=== PATIENT | female | born 1985 | race Caucasian/White ===

== ENCOUNTER 2022-12-18 15:55 | Outpatient (CLI) | payer OTHER, SELFPAY ==
[2022-12-18 18:52] LABS: Chlamydia DNA Amplified* NOT DETECTED (No Detected); GC DNA Amplified* NOT DETECTED (No Detected)
== END 2022-12-18 15:56 | disposition home or self-care (01) ==
PROVIDERS: PCP Family Medicine; Visit Provider Registered Nurse
DX: N89.8 Other specified noninflammatory disorders of vagina (principal); Z11.3 Encounter for screening for infections with a predominantly sexual mode of transmission
CPT/HCPCS: 87491; 87591

== ENCOUNTER 2025-01-06 09:58 | Outpatient (CLI) | payer OTHER, SELFPAY | END 2025-01-06 09:59 | disposition home or self-care (01) | LOC: NFLDREF 01-08 03:03 | PROVIDERS: PCP Family Medicine; Referring Provider Family Medicine; Visit Provider Obstetrics & Gynecology | DX: N92.0 Excessive and frequent menstruation with regular cycle (principal); D64.9 Anemia, unspecified | CPT/HCPCS: 83540; 83550; 84443 ==

== ENCOUNTER 2025-01-10 11:03 | Outpatient (CLI) | payer OTHER, SELFPAY ==
--- NOTE | 2025-01-10 11:00 | CRLHL7_ITS ---
For Patients: As a result of the Century Cures Act, medical imaging exams and procedure reports are released immediately into your electronic medical record. You may view this report before your referring provider. If you have questions, please contact your health care provider. INDICATION: menorrhagia COMPARISON: 12/13/2021 TECHNIQUE: 2D murry scale and color Doppler images were acquired of the pelvis using a transabdominal and transvaginal approach. FINDINGS: Multiple cervical nabothian cysts are present. Intramural fibroid is present which measures 18 x 13 x 16 millimeters. Uterus measures 8.9 cm in length by 4.5 cm in AP diameter by 6.2 cm in transverse dimension. The myometrium has a normal uniform echotexture. The endometrial lining measures 15.8 mm in composite thickness. Echogenic nodular area associated with the endometrium measures 14 x 8 x 8 millimeters. The right ovary measures 3.2 x 1.8 x 3.1 cm in size and the left ovary measures 5.1 x 1.8 x 2.3 cm. The ovaries demonstrate normal arterial and venous blood flow on color Doppler analysis. There are no suspicious fluid collections within the cul-de-sac. IMPRESSION: Thickened endometrium measuring 15.8 millimeters with possible 14 millimeter endometrial polyp. Intramural uterine fibroid posteriorly measures 1.8 cm. Dictated by Rich Curtis MD @ 01/10/2025 6:55:15 PM (Electronically Signed)
== END 2025-01-10 11:04 | disposition home or self-care (01) ==
LOC: US 11:04
PROVIDERS: PCP Family Medicine; Visit Provider Obstetrics & Gynecology
DX: N92.0 Excessive and frequent menstruation with regular cycle (principal); R93.89 Abnormal findings on diagnostic imaging of other specified body structures; D25.1 Intramural leiomyoma of uterus
CPT/HCPCS: 76830; 76856

== ENCOUNTER 2025-01-14 06:09 | Day surgery (SDC) | payer OTHER, SELFPAY ==
[2025-01-14] VITALS (55 sets, daily range): BP systolic 79–123; BP diastolic 53–85; PULSE 68–111; RESP 11–17; TEMP 36.3–37.4; O2SAT 93–99; BMI 26.1
--- OUTSIDE RECORDS SUMMARY | 2025-01-14 06:14 | XMS_ITS | Clinical Summary ---
Author Organization [facility] Address [address] [place] [id number] Care Team Providers Care Emt Paramedic Name Role Phone Colton Kothari MD Primary Care Provider [phone] Allergies No known active allergies Medications cetirizine (ZYRTEC) 10 mg tablet Take 1 Tablet (10 mg) by mouth once daily. 0 1 Active LORazepam (ATIVAN) 0.5 mg tabIndications:A nxiety TAKE ONE TABLET BY MOUTH EVERY 6 HOURS IF NEEDED FOR ANXIETY 20 Tablet 2 Active multivitamin (MVI) tablet Take 1 Tablet by mouth once daily. Active fluticasone (50 mcg per actuation) nasal solution (FLONASE)Indicat ions:Allergy, sequela Inhale 2 Sprays to both nostrils once daily. 16 g 11 4 Active sertraline (ZOLOFT) 100 mg tabletIndication s:Anxiety Take 1 Tablet (100 mg) by mouth once daily. 90 Tablet 3 4 Active rizatriptan (MAXALT) 10 mg tabletIndication s:Migraine syndrome 10 mg at onset of Migraine, repeat in 2 hours as needed. Give at minimum 2hrs apart. Max Dose: 30mg per 24hrs. 6 Tablet 3 4 Active nitrofurantoin macrocrystals/mo nohydrate (Macrobid) 100 mg capsuleIndicatio ns:History of recurrent UTIs 1 tablet right after relations. 10 Capsule 4 Active buPROPion (Wellbutrin XL) 150 mg Extended-Release tabletIndication s:Mild episode of recurrent major depressive disorder Take 1 Tablet (150 mg) by mouth once daily. 90 Tablet 3 4 Active semaglutide, weight loss, (WEGOVY) 0.5 mg/0.5 mL subcutaneous pen Inject 0.5 mg subcutaneous once weekly. Active cyclobenzaprine (FLEXERIL) 5 mg tabletIndication s:Neck muscle spasm Take 1-2 Tablets (5-10 mg) by mouth 2 times daily if needed for Muscle Spasm. 45 Tablet 1 4 Active Active Problems Problem Noted Date Diagnosed Date Irritable bowel syndrome wit h both constipation and diarrhea 08/08/2023 Controlled substance agreement signed 07/14/2021 Overview (07/14/2021): Stimulant treatment of ADD. Controlled substance agreement discussed and signed 07/11/21. 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 Quinolone and bactrim resistant ecoli. Anxiety 05/24/2013 Attention deficit disorder without mention of hy peractivity 03/18/2013 Overview (06/06/2023): Adderall - she crashes when she goes off it. Ritalin - heart palpitations Strattera - cold hands and feet. Migraine, unspecified, witho ut mention of intractable migraine without mention of status migrainosus 12/29/2009 Major depressive disorder, recurrent episode, un specified 09/21/2009 Mild dysplasia of cervix 01/22/2008 Resolved Problems Problem Noted Date Diagnosed Date Resolved Date Cervical high risk HPV (natalia n papillomavirus) test positive 08/24/2015 09/09/2018 Overview (03/25/2017): HPV #16/18 negative Cervical high risk HPV (natalia n papillomavirus) test positive 02/22/2015 09/09/2018 LSIL (low grade squamous int raepithelial lesion) on Pap smear 02/26/2012 09/09/2018 Esophageal reflux 04/06/2008 12/29/2009 Supervision of normal first 11/03/2007 12/29/2009 Urinary tract infection, site not specified 11/03/2007 12/29/2009 Encounters Date Type Department Care Team Description 01/10/2025 Orders Only [facility] Scanner 1 scan: (1-Ord) [facility] and TV, 01/10/2025 from Last 3 Months Immunizations Name Administration Dates Next Due COVID-19 vaccine (Moderna 100mcg/0.5mL) PF, MDV 03/08/2021,02/08/2021 HPV 9 (Gardasil 9) 03/05/2024,06/06/2023 Hepatitis B (Adult) 07/24/2012 Hepatitis B (Peds) 07/03/1998,07/21/1996 Influenza A (H1N1), Inactivated 10/02/2009 Influenza Virus, Unspecified 09/07/2019, 09/14/2015,08/31/2014,08/04 Influenza, IIV4 09/16/2023, 2,09/19/2021,08/19,09/20/2016 Influenza,CCIIV4 PRESERV FREE 08/11/2017 MMR 09/04/2012,07/21/1996 Td (Age >=7 Years) 03/22/2008,07/21/1996 Tdap 06/26/2021,12/29/2009 06/26/2031 Tuberculin (PPD) 07/12/2022, 8,09/08/2018,08/31,07/13/2013 Family History Medical History Relation Name Comments Alcohol/Drug Father EtOH dependence Cancer Father metastatic lung cancer of this at 58 Cancer Maternal Grandfather pancrea tic cancer 2009 Other Maternal Uncle Tourette's sy ndrome Alcohol/Drug Mother EtOH overuse, m ethamphetamine in the past Good Health Mother Hyperlipidemia Mother Other Mother Migraine headac hes Cancer Other Pancreatic 2009 great uncle Cancer Paternal Grandmother ovarian cancer 60s Psychiatric illness Sister ADHD, dx as an adult, Ritalin Relation Name Status Comments Father Maternal Grandfather Maternal Uncle Mother Other Paternal Grandmother Sister Social History Tobacco Use Types Packs/Day Years Used Date Smoking Tobacco: Former Cigarettes 0 14.7 2 010 - 08/21/2024 Smokeless Tobacco: Never Tobacco Cessation:Counseling Given: Not Answered Comments:Less than 1 cigarette per week Alcohol Use Standard Drinks/Week Comments Not Currently 1 (1 standard drink = 0.6 oz pur e alcohol) quit 08/21/2024 PHQ-2 Answer Date Recorded PHQ-2 TOTAL SCORE 2 05/14/2024 Social Connections Answer Date Recorded Frequency of Communication with Friends and Fami ly 4 06/06/2023 Alcohol Use Answer Date Recorded How often do you have a drink containing alcohol ? 3 06/06/2023 How many drinks containing a lcohol do you have on a typical day when you are drinking? 1 06/06/2023 How often do you have five or more drinks on one occasion? 3 06/06/2023 Financial Resource Strain Answer Date R ecorded Difficulty of Paying Living Expenses 3 06/06/2023 Difficulty of Paying Living Expenses Not on file 06/06/2023 Food Insecurity Answer Date Recorded Worried About Running Out of Food in the Last Ye ar 1 06/06/2023 Transportation Needs Answer Date Record ed Lack of Transportation (Medical) 1 06/06/2023 Housing Stability Answer Date Recorded Unable to Pay for Housing in the Last Year 1 06/06/2023 Comments No Sex and Gender Information Value Date Recorded Sex Assigned at Not on file Legal Sex Female 6:57 AM GOVERNMENT OPERATIONS CONSULTANT Gender Identity Not on file Sexual Orientation Not on file Occupation Industry Job Start Date Job End Date RN Not on file Not on file Not on file Obstetrics History Para Term AB IAB SAB Ectopic Multiple Livin g Live Births 1 1 0 0 0 0 0 1 Date Outcome GA Total Labor Labor//3rd Weight Sex Type Anes PTL Magui A1 A5 Name Clin Para Comments malpresentation Last Filed Vital Signs Vital Sign Reading Time Taken Comments Blood Pressure 122/78 05/14/2024 11:45 AM CDT Pulse 73 05/14/2024 10:57 AM CDT Temperature 37.7 C (99.8 F) 06/19/2021 10:42 AM CDT Respiratory Rate 16 06/19/2021 11:35 AM CDT Oxygen Saturation 99% 03/05/2024 11:10 AM CDT Inhaled Oxygen Concentration - - Weight 86.6 kg (191 lb) 05/14/2024 10:57 AM CDT Height 175.3 cm (5' 9) 12/16/2023 2:12 PM GOVERNMENT OPERATIONS CONSULTANT Body Mass Index 28.21 12/16/2023 2:12 PM GOVERNMENT OPERATIONS CONSULTANT Plan of Treatment Health Maintenance Due Date Last Done Comments COVID-19 vaccine series ( season) 2024 03/08/2021, 02/08/2021 Influenza for age 9-49 07/25/2024 , 09/06/2022, 09/19/2021, Additional history exists BMI (ht and wt on same day) for age 18+ 12/16/2024 12/16/2023, 06/06/2023, 08/01/2021, Additional history exists Depression screening for age 12+ 05/14/2025 05/14/2024, 03/05/2024, 08/20/2023, Additional history exists Pap test for age 21-65 12/18/2025 3, 12/18/2022, 08/19/2018, Additional history exists Tetanus booster 06/26/2031 06/26/2021, 03/2010, 03/22/2008, Additional history exists Tdap Completed 06/26/2021, 12/29/2009 Hepatitis C screening for age 18-79 Completed 06/06/2023 HIV for age 15-65 Completed 03/05/2024, , 12/06/2016, Additional history exists Pneumococcal series for age 6-49 Aged Out No longer eligible based on patient's age to complete this topic Procedures Procedure Name Priority Date/Time Associated Diagnosis Comments SCAN-ULTRASOUND REPORT 01/10/2025 12:00 AM GOVERNMENT OPERATIONS CONSULTANT ANTI HIV 1/2 Routine 03/05/2024 12:04 PM CDT Screen for STD (sexually transmitted disease) LC HCV ANTIBODY RFX TO QUANT PCR Routine 06/06/2023 3:11 PM CDT Need for hepatitis C screening test HPV HIGH RISK Routine 12/18/2022 12:00 PM GOVERNMENT OPERATIONS CONSULTANT from Last 3 Months or Most Recently Relevant to Health Maintenance Results * SCAN-ULTRASOUND REPORT (01/10/2025 12:00 AM GOVERNMENT OPERATIONS CONSULTANT) Anatomical Region Laterality Modality Other us Scanner OTHER Final Result * ANTI HIV 1/2 (03/05/2024 12:04 PM CDT) HIV-1/HIV-2 SCREEN Non-Reacti ve Non-Reacti ve 03/05/2024 8:59 PM CDT [facility] Comment:HIV-1 p24 and HIV-1/ HIV-2 Ab Not Detected. Blood BLOOD SPECIMEN / Unknown Venipuncture / Unknown 03/05/2024 12:04 PM CDT 03/05/2024 12:06 PM CDT us Colton Kothari MD SEND OUTS Final Resu lt [facility] [address] [place] [address], * LC HCV ANTIBODY RFX TO QUANT PCR (06/06/2023 3:11 PM CDT) HCV Ab Non Reactive Non Reactive 06/10/2023 4:08 PM CDT [facility] Blood BLOOD SPECIMEN / Unknown Venipuncture / Unknown 06/06/2023 3:11 PM CDT 06/06/2023 3:11 PM CDT Narrative [facility] - 06/10/2023 4:08 PM CDT Performed at: [address] [id number] Dance Director: Kishan Ruth MD, Phone: [phone] Colton Kothari MD LABORATORY Final Resu lt [facility] ([facility]) [facility] [place], [place] [address] * HPV HIGH RISK (12/18/2022 12:00 PM GOVERNMENT OPERATIONS CONSULTANT) TYPE 16 Negative Negative 12/23/2022 5:31 PM GOVERNMENT OPERATIONS CONSULTANT [facility] TYPE 18 Negative Negative 12/23/2022 5:31 PM GOVERNMENT OPERATIONS CONSULTANT [facility] OTHER HIGH RISK TYPES Negative Negative 12/23/2022 5:31 PM GOVERNMENT OPERATIONS CONSULTANT [facility] Other (Cervical) 12/18/2022 12:00 PM GOVERNMENT OPERATIONS CONSULTANT 12/20/2022 2:14 PM GOVERNMENT OPERATIONS CONSULTANT Narrative [facility] - 12/23/2022 5:31 PM GOVERNMENT OPERATIONS CONSULTANT HPV types 16, 18, 31, 33, 35, 39, 45, 51, 52, 56, 58, 59, 66 and 68 DNA were undetectable or below the pre-set threshold. Methodology: Josias Inna 4800 HPV Test Shannan Silveira NP MICROBIOLOGY Final Res ult [facility] [address] [place] [address], from Last 3 Months or Most Recently Relevant to Health Maintenance Insurance [employer] [place] [id number] [employer] Member Subscriber Plan / Payer (Ef fective 2021-Present) Name:Bibi Bonilla Sujey Relation to Subscriber:Self Name:Bibi Bonilla Payer ID:Not on file Group ID:Not on file Type:Not on file Address: [address] [place] [id number] [place] [id number] Care Teams Emt Paramedic Relationship Specialty Start Date End Date Colton Kothari MD [address] [place] [address] PCP - General 01/14/08
[2025-01-14] MEDS: LACTATED RINGERS 1000 ML 1,000 ML 100 ML IV ×2 (06:40→10:44)
[2025-01-14] MEDS: SODIUM CHLORIDE 0.9 % (FLUSH) 10 ML SYRINGE IVF (06:40)
[2025-01-14 06:43] LABS: Ur HCG Qualitative* Negative (Negative)
--- NOTE | 2025-01-14 07:00 | W.PM.H&PU ---
History & Physical Update History & Physical Update H&P Reviewed and patient assessed: No changes noted
[2025-01-14 07:12] LABS: Hemoglobin* 11.3 gm/dL (12.0-16.0)
[2025-01-14 07:18] LABS: Creatinine* 0.9 mg/dL (0.5-1.5); Est. Creatinine Clearance* 85.97; Estimated Glomerular Filt Rate 82 ml/min
[2025-01-14] MEDS: CEFAZOLIN 2 GM INJ IVP (07:34)
--- NOTE | 2025-01-14 08:17 | P.NB_ITS ---
Nerve Block Nerve Block Time Seen by Provider: 07:23 Date Seen: 01/14/25 Type of block requested by surgeon for post-operative analgesia: TAP Side: bilateral Time out performed: Yes Verification of patient name: Yes Verification of date of : Yes Site marking: site marked Name of person performing procedure: Vladislav Continuous monitoring Was continuous monitoring of O2 sat, B/P, quality assurance monitor chassis, recorded every 15 minutes?: Yes Procedure Checklist: sterile prep, needles and gloves Ultrasound guided. Images saved: Yes Medications given in 5ml increments after negative aspiration: Marcaine %: 0.25 mL: 30 Needle gauge: 20 and Exparel mL: 10 Patient tolerated procedure well: Yes Additional comments: Needle noted between internal oblique and transversus abdominus. Local spread visualized Block Charges Block Charge (with Pro Fee): TAP Bilateral Use of Ultrasound Machine for Block: Yes- US Guidance/pain block
--- NOTE | 2025-01-14 11:20 | W.ANESCHARGE ---
Anesthesia Charges Start Date/Time Anesthesia Start Date: 01/14/25 Anesthesia Start Time: 07:15 Stop Date/Time Anesthesia Stop Date: 01/14/25 Anesthesia Stop Time: 11:20 Coding CPT Codes CPT Codes: ANESTH SURG LOWER ABDOMEN - 70851 ([id number]) P1 - NORMAL HEALTHY PATIENT, QZ - LENS GAUGER SVC W/O ALIGNING CHECKER BY
--- NOTE | 2025-01-14 11:51 | SUR.PHASEI ---
patient met discharge criteria per anesthesia (delia kilpatrick)
--- NOTE | 2025-01-14 14:05 | W.PM.GYNPROC ---
Procedure Note Date of procedure: 01/14/25 Will [facility] bill your pro fee for this procedure?: Yes Procedure Description: PREOPERATIVE DIAGNOSIS: Menorrhagia POSTOPERATIVE DIAGNOSIS: Menorrhagia Endometriosis TITLE OF OPERATION: 1. Total laparoscopic hysterectomy with bilateral salpingectomy 2. Fulguration and excision of endometriosis 3. Cystoscopy 4. Repair of incidental serosal bowel injury SURGEON: Shaina Poe MD SMART GRID ENGINEER: Maura Cuba CRNA ANESTHESIA: General IV FLUIDS: 1900 mL crystalloid mL crystalloid ESTIMATED BLOOD LOSS: 25 mL URINE OUTPUT: 350 mL FINDINGS: 1. Upon pelvic exam under anesthesia, the cervix and vagina were normal in appearance. Uterus was mobile and anteverted, of normal size and texture. There were no palpable adnexal masses. 2. Upon laparoscopy, survey of the upper abdomen revealed a normal appearance to the inferior edge of the liver, gallbladder and stomach. Bowels were grossly normal appearance, as was the appendix. There were scattered macules of endometriosis in the right lower quadrant anterior peritoneum above the pelvic brim. Survey of the pelvis revealed scattered endometriosis implants involving the posterior cul-de-sac, the left pelvic sidewall overlying the ureter, the right uterosacral ligament. There were 2 deeper implants overlying the iliac vessels on the patient's right side, adjacent to the large intestine. All of these were removed with the exception of these last 2 implants. The uterus was externally normal in appearance. Bilateral tubes and ovaries were normal in appearance. The bladder reflection was normal in appearance. 3. There was a superficial injury to the colonic serosa measuring 1-2 mm in greatest dimension during attempted dissection of the endometriotic implants overlying the iliac vessels. COMPLICATIONS: None PROCEDURE IN DETAIL: Patient was taken to the operating room with IV running. She received cefazolin in preoperative prophylaxis. She was positioned in dorsal lithotomy position with her legs fully supported in Yellofin stirrups. General anesthesia was administered. She was prepped and draped in the usual sterile fashion. Pelvic exam under anesthesia was performed for the above-noted findings. Speculum was inserted. Cervix visualized and grasped along its anterior lip with a single-tooth tenaculum. Cervix was dilated with Hegar dilators to accommodate the VCare uterine manipulator. A medium-sized colpotomizer cup was selected. The tip of the uterine manipulator was inserted through the cervix into the uterine cavity and the balloon was inflated. The speculum was removed. The colpotomy cup was advanced, surrounding the cervix, and the proximal occluder was moved up along the shaft of the VCare and fixed in place. Cherry catheter was placed. Patient's legs were then placed in neutral position. Attention was turned to patient's abdomen. A 5 mm infraumbilical incision was made with a scalpel and carried down to the underlying layer of fascia with the hemostat. 5 mm camera was placed within the 5 mm Fios Kii trocar, and advanced under direct visualization through the anterior abdominal wall into the peritoneal cavity, while tenting up the anterior abdominal wall. The trocar was removed. The balloon was inflated, holding the port in place. Pneumoperitoneum was achieved. Survey of the abdomen and pelvis revealed the above-noted findings. Three additional port sites were created. The first was in the patient's left lower quadrant, just superomedial to the left ASIS. The second was a hand's breadth superior to and slightly medial to the first. The third was in the patient's right lower quadrant, just superomedial to the right ASIS. A 5 mm incision was made at each of these sites, after assuring that large vessels were out of harm's way. A 5 mm Fios Kii port at each of these sites, under direct visualization and without complication. The balloon on each of the four ports was inflated, holding each in place. Attention was first turned to the above described endometriotic implants surrounding right lower quadrant. The peritoneum at this site was grasped and sharply excised with laparoscopic nicole. This was sent to pathology. The surrounding superficial endometriotic implants for treated with monopolar cautery. Attention was then turned to the left fallopian tube, which was divided from the mesosalpinx, using the Thunderbeat bipolar cautery device, proceeding laterally to medially, and the tube was amputated at the left uterine cornua. This was removed through the port site and sent to pathology. This procedure was repeated on the patient's right side, and the right fallopian tube was also amputated at the cornua and removed from the patient's abdomen. This was also sent to pathology for further analysis. The left round ligament was cauterized and transected with the Thunderbeat device. The utero-ovarian ligament was cauterized and transected, and the remnants of the right broad ligament were cauterized and transected between these two structures. The bladder flap was created on the patient's left side, moving laterally to medially. The left uterine artery was cauterized and transected with the Thunderbeat device. Using the colpotomizer cup as a guide, the peritoneum and underlying stroma was dissected off the anticipated site of colpotomy over the posterior vaginal fornix. Attention was then turned to the right side of the uterus, where the right round ligament was cauterized and transected with the Thunderbeat device. The right utero-ovarian ligament was cauterized and transected, and the remnants of the right round ligament were cauterized and transected between these two structures. The bladder flap was created on the patient's right side, and dissection was carried laterally to medially, meeting the dissection where it had left off from the patient's right side. The right uterine artery was cauterized and transected with the Thunderbeat device. The bladder reflection was moved well below the colpotomizer cup anteriorly. The vaginal fornix was then entered anteriorly with the Thunderbeat device, using the colpotomizer cup as a guide. This device was moved along the circumference of the colpotomizer cup, until the uterus and cervix were freed from their attachments to the pelvis. The uterus was pulled into the patient's vagina, maintaining the pneumoperitoneum. The vaginal cuff was closed with a series of interrupted [id number] sutures of 0 Vicryl. These were placed and tied laparoscopically. The endometriotic implants in the cul-de-sac and involving the right uterosacral ligament and left ureter the were then addressed. The implants involving the vaginal cuff for treated with electrocautery. The implants overlying the left ureter for dissected out of the peritoneum with laparoscopic nicole. The implant on the right uterosacral ligament was also sharply excised. Hemostasis was achieved with monopolar cautery in a limited fashion. Ports were left in place but all instruments were removed and pneumoperitoneum was released. Patient's legs were placed back in lithotomy position. The uterus was removed from the vagina and was sent to pathology for further analysis. The Cherry catheter was removed from the bladder, and the cystoscope was assembled with saline inflow, outflow, and light cord in place. The patient was given IV sodium fluorescein prior to the cystoscopy. Cystoscope was advanced through the urethra into the bladder, and survey of the mucosa revealed a normal appearance. The bladder dome was intact. Bilateral ureteral jets were noted. Cystoscope was removed and Cherry catheter replaced. Patient's legs were again placed in neutral position. Insufflator was reattached to the port and pneumoperitoneum again achieved. Survey of the pelvis revealed hemostasis. The endometriotic implants adjacent to the cecum overlying the right iliac vessels were then noted. An attempt was made to dissect these out sharply, but a small serosal injury occurred to the Suppes large intestine at this site. This was oversewn with 2 0 silk sutures in an interrupted fashion; 2 sutures were required. Injury was imbricated beneath the sutures. These sutures were placed and tied laparoscopically. Hemostasis was noted. The balloons of all remaining port sites were deflated, and all ports were removed after pneumoperitoneum was released. The skin of each port site was closed in a subcuticular fashion with 4 0 Monocryl. Surgical glue was applied above this. Patient tolerated procedure well and was taken to recovery area in stable condition.
[2025-01-14] MEDS: ACETAMINOPHEN 500 MG TABLET 1000 MG PO ×2 (14:36→20:29)
[2025-01-14] MEDS: OXYCODONE 5 MG TABLET PO ×2 (14:36→19:05)
[2025-01-14] MEDS: LACTATED RINGERS 1000 ML 1,000 ML 40 ML IV (14:38)
[2025-01-14] MEDS: KETOROLAC 30 MG/ML inj IVP ×2 (16:43→22:25)
[2025-01-14] MEDS: SIMETHICONE 80 MG TAB.CHEW 160 MG PO (17:40)
--- NOTE | 2025-01-14 19:14 | PC.NURSE ---
shift note:pt to floor from PACU @ 5207. Ptplaced on canelo langley [id number]. IV patent. Pt medicated for lower groin pain 03/03 with scheduled toradol, prn tylenol and prn oxycodone with relief. lap sites x4 glued and open to air. BS active x4. Pt performing IS indept to 1500. No drainage on rasheed pad.
[2025-01-15 03:00] VITALS: BP 114/65; PULSE 74; RESP 16; TEMP 36.6; O2SAT 96
[2025-01-15] MEDS: KETOROLAC 30 MG/ML inj IVP ×2 (03:35→10:47)
--- NOTE | 2025-01-15 05:43 | PC.NURSE ---
Shift note: Pt is doing will with pain control. She has been in bed throughout the shift. Pain has been rated between 2 and 5. IV in left wrist with L/R infusing at 40ml/hr. Cherry draining well to be removed this morning. About 700ml of clear urine drained tonight. Pt refused ambulation for my shift. Alert and oriented. Vitally stable. 4 LAP sites closed with glue. Ice applied.
[2025-01-15 06:44] LABS: Hemoglobin* 9.6 gm/dL (12.0-16.0)
[2025-01-15 07:15] LABS: Creatinine* 0.7 mg/dL (0.5-1.5); Est. Creatinine Clearance* 110.53; Estimated Glomerular Filt Rate 111 ml/min
[2025-01-15 08:15] VITALS: BP 107/67; PULSE 78; RESP 16; TEMP 37.1; O2SAT 98
[2025-01-15] MEDS: SERTRALINE 100 MG TABLET 150 MG PO (08:16)
[2025-01-15] MEDS: OXYCODONE 5 MG TABLET PO (08:16)
[2025-01-15] MEDS: buPROPion XL 150 MG TABLET PO (08:17)
--- NOTE | 2025-01-15 08:56 | PC.NURSE ---
Bladder backfilled with 200ml sterile saline per patient tolerance. Cherry catheter DC'd. Patient voided 150ml.
--- NOTE | 2025-01-15 09:01 | P.DS_ITS ---
DS: Providers Provider Date Seen: 01/15/25 Date of admission: 01/14/25 Primary care physician: Colton Kothari MD Admitting Clinician: Shaina Poe MD Attending Physician on discharge: Shaina Poe MD Date of Discharge: 01/15/25 DS: Diagnosis Discharge Diagnosis (1) S/P laparoscopic hysterectomy: Status: Acute (2) Endometriosis: Status: Acute (3) Accidental injury of intestine during surgical procedure: Status: Acute INTERNET PROJECT MANAGER-Discharge Summary Hospital Course Hospital Course Narrative: Patient is a 39 year old woman admitted on 01/14/2025 for planned total laparoscopic hysterectomy, bilateral salpingectomy and cystoscopy. Indication for surgery: Menorrhagia. Intraoperative findings were notable for endometriotic implants in several locations in the pelvis and lower abdomen. In addition to the above-noted procedures, she had excision and fulguration of endometriosis. She had a small serosal large intestinal injury at this time, which was repaired with interrupted sutures. Surgery was otherwise uncomplicated. Postoperative course has been uneventful. Vitals have been stable. She has remained afebrile. Today, on postoperative day 1, she reports the pain is well controlled. She has been able to ambulate Without difficulty. She is tolerating regular diet. She is passing flatus. Cherry catheter has been removed, and she is voiding without difficulty. Time Spent with Patient Time attestation: Total time spent providing and/or coordinating discharge services: INTERNET PROJECT MANAGER - Exam Physical Exam: Vital signs: Temp Pulse Resp BP Pulse Ox O2 Del Method 98.8 F 78 16 107/67 98 Room Air 01/15/25 08:15 01/15/25 08:15 01/15/25 08:15 01/15/25 08:15 01/15/25 08:15 01/15/25 08:15 Narrative: General: Pleasant, no acute distress Heart: Regular rate and rhythm, no murmur or gallop Lungs: Clear to auscultation bilaterally Abdomen: Soft, nontender, normoactive bowel sounds in all 4 quadrants, no d istension, rebound or guarding, laparoscopic port sites clean, dry, and intact Lower extremities: No edema or erythema INTERNET PROJECT MANAGER - DS: Data Data Completed and Pending Labs on day of discharge: Labs from last 24 hours 01/15/25 05:42 Hgb 9.6 L Creatinine 0.7 Estimated Creat Clear 110.53 Estimated GFR 111 Procedures Procedures: Procedures Operation Date: 01/14/25 07:15 Actual Procedure Side Surgeon p M/S-Total Laparoscopic Hysterectomy, Bilateral Salpingectomy, Fulguration and excision of endometriosis, Enterotomy repairs, Cystoscopy Shaina Poe MD Complications: other (Serosal bowel injury) Discharge Plan Discharge Disposition: Home w/ Parent or Adult Discharging Surgeon: Shaina Poe Follow-Up Appointment: [address] Poe Prescriptions: New acetaminophen 500 mg Tablet 1,000 mg PO Q6H PRNQty: 0 0RF ferrous sulfate 325 mg (65 mg iron) Tablet 325 mg PO Q48H Qty: 20 0RF docusate sodium 100 mg Capsule 100 mg PO BID PRN (Reason: Constipation) Qty: 0 0RF ibuprofen 600 mg Tablet 600 mg PO Q6H Qty: 0 0RF simethicone 80 mg Tablet,Chewable 160 mg PO Q4H PRN (Reason: gas) Qty: 0 0RF oxycodone 5 mg Tablet 5 mg PO Q4H PRN (Reason: Moderate Pain) Qty: 20 0RF Continued bupropion HCl 150 mg tablet extended release 24 hr 150 mg PO DAILY lorazepam 0.5 mg tablet 0.5 mg PO DAILY PRN hydroxyzine pamoate 25 mg capsule 25 mg PO QDAY PRN sertraline 100 mg tablet 150 mg PO DAILY fluticasone propionate 50 mcg/actuation spray,suspension intranasal cetirizine [24Hour Allergy] 10 mg tablet 10 mg PO DAILY PRN Discontinued levonorgestrel-ethinyl estrad 0.1-20 mg-mcg tablet 1 tab PO QDAY Qty: 84 1RF Rx Instructions: Take one tablet by mouth every day. Activity Level: Activity as Tolerated Activity Detail: No driving until off of narcotic medications. Discharge Diet: Regular Patient Instructions: Laparoscopic Hysterectomy (DC) Additional Instructions: No lifting restriction is required. Follow-up: Colton Kothari MD [Primary Care Provider] - Shaina Poe MD [Staff Physician] - Discharge Orders: Discharge Order (Routine); Ordered 01/15/25 Ordered By: Shaina Poe
[2025-01-15] MEDS: FERROUS SULFATE 325 MG TABLET PO (10:49)
== END 2025-01-15 11:29 | disposition home or self-care (01) ==
LOC: OR 06:13 → MEDSURG 06:23
PROVIDERS: PCP Family Medicine; Visit Provider Obstetrics & Gynecology
PROC: 0UT94ZZ Resection of Uterus, Percutaneous Endoscopic Approach (ICD-10-PCS; CPT 58571; principal; 2025-01-14 07:15)
DX: N92.0 Excessive and frequent menstruation with regular cycle (principal); N80.329 Endometriosis of the posterior cul-de-sac, unspecified depth; N80.3C1 Endometriosis of the right uterosacral ligament, unspecified depth; N80.352 Endometriosis of the left pelvic sidewall, unspecified depth; K91.72 Accidental puncture and laceration of a digestive system organ or structure during other procedure; G89.18 Other acute postprocedural pain
CPT/HCPCS: 58571; 58662; 44238; 00840; 36415; 64488; 76942; 81025; 82565; 85018; 86850; 86900; 86901; 88305; 88309; A4314; A9270; J0330; J0665; J0666; J0690; J1100; J1630; J1885; J2405; J2704; J3010; J3490; J7120

== ENCOUNTER 2025-02-17 14:17 | Outpatient (CLI) | payer OTHER, SELFPAY ==
[2025-02-17 18:58] LABS: Bacterial Vaginosis* POSITIVE (Negative); Candida glab/krus NOT DETECTED (No Detected); Candida species NOT DETECTED (No Detected); Trichomonas vaginalis NOT DETECTED (No Detected)
[2025-02-17 19:28] LABS: Chlamydia DNA Amplified* NOT DETECTED (No Detected); GC DNA Amplified* NOT DETECTED (No Detected)
== END 2025-02-17 14:18 | disposition home or self-care (01) ==
PROVIDERS: PCP Family Medicine; Visit Provider Obstetrics & Gynecology
DX: N76.0 Acute vaginitis (principal); B96.89 Other specified bacterial agents as the cause of diseases classified elsewhere; R39.15 Urgency of urination; T74.21XA Adult sexual abuse, confirmed, initial encounter; Y07.54 Acquaintance or friend, perpetrator of maltreatment and neglect; Z11.3 Encounter for screening for infections with a predominantly sexual mode of transmission
CPT/HCPCS: 81513; 87086; 87481; 87491; 87591; 87661

== ENCOUNTER 2025-04-26 09:34 | Outpatient (CLI) | payer OTHER, SELFPAY | END 2025-04-26 09:35 | disposition home or self-care (01) | PROVIDERS: PCP Family Medicine; Visit Provider Obstetrics & Gynecology | DX: Z11.3 Encounter for screening for infections with a predominantly sexual mode of transmission (principal); Z11.4 Encounter for screening for human immunodeficiency virus [HIV]; Z11.59 Encounter for screening for other viral diseases | CPT/HCPCS: 86592; 86703; 86706; 86803; 87340 ==

== ENCOUNTER 2025-06-07 11:27 | Outpatient (CLI) | payer OTHER, SELFPAY | END 2025-06-07 11:28 | disposition home or self-care (01) | LOC: NFLDREF 06-09 17:28 | PROVIDERS: PCP Family Medicine; Referring Provider Family Medicine; Visit Provider Obstetrics & Gynecology | DX: Z11.3 Encounter for screening for infections with a predominantly sexual mode of transmission (principal); Z11.4 Encounter for screening for human immunodeficiency virus [HIV]; Z11.59 Encounter for screening for other viral diseases | CPT/HCPCS: 86592; 86703; 86803; 87340 ==